=== PATIENT | female | born 1960 | race Caucasian/White ===

== ENCOUNTER 2019-10-22 12:37 | Emergency (ER) | payer MEDICAID ==
[~2019-10-22] VITALS: Ht 157.5 cm; Wt 86.5 kg
[~2019-10-22 12:37] MED LIST: LEVO125T5 PO; LISI-170 PO; LOVA40TA2 PO; METF10002 PO; OXYC5TAB3 PO
--- NOTE | 2019-10-22 13:18 | NUR ---
LOW BACK PAIN FOR A MONTH RADIATING DOWN BOTH LEGS. PRESCRIBED MUSCLE RELAXER VIA PHONE AND HAS APPOINTMENT LATER THIS MONTH. TODAY PAIN BECAME SEVERE DOWN LEFT LEG.
[2019-10-22] MEDS ORDERED: METHOCARBAMOL 750 MG TABLET ONE (13:42)
[2019-10-22] MEDS ORDERED: OXYcodone/APAP 5/325MG TABLET ONE (13:43)
--- NOTE | 2019-10-22 13:58 | NUR ---
PT TO MRI
[2019-10-22] MEDS ORDERED: OXYcodone/APAP 5/325MG TABLET PO ONE (14:00)
[2019-10-22] MEDS ORDERED: METHOCARBAMOL 750 MG TABLET PO ONE (14:00)
--- NOTE | 2019-10-22 14:18 | NUR ---
BREAK RN: PT RETURNED FROM MRI, SITTING UPRIGHT ON GURNEY AWAKE & COMFORTABLE AT REST BUT C/O PAIN WITH MOVEMENT, MEDICATED PER EMAR, PT RESPONDS APPROP TO STAFF, COMFORT MEASURES PROVIDED, CALL LIGHT WITHIN REACH.
--- NOTE | 2019-10-22 15:33 | NUR ---
AMBULATED TO DISCHARGE WINDOW FAVORING LEFT LEG BUT WITHOUT ASSISTANCE.
[2019-10-22 15:34] VITALS: BP 144/72
== END 2019-10-22 15:46 | disposition home or self-care (01) ==
LOC: ED 15:35
DX: M54.16 Radiculopathy, lumbar region (principal); I10 Essential (primary) hypertension
CPT/HCPCS: 72148; 99284